=== PATIENT | male | born 1985 | race Caucasian/White ===

== ENCOUNTER 2024-11-30 07:41 | Day surgery (SDC) | payer BC ==
[2024-11-27 17:38] VITALS: BMI 30.1
[2024-11-30] MEDS ORDERED: LIDOCAINE HCL/PF 2% SDV 5ML VIAL ONE (08:23)
[2024-11-30] MEDS ORDERED: MIDAZOLAM HCL 2 MG/2 ML SINGLE DOSE VIAL ONE (08:23)
[2024-11-30] MEDS ORDERED: PROPOFOL 20 ML ONE (08:23)
[2024-11-30] MEDS ORDERED: BUPIVACAINE HCL/EPINEPHRINE/PF 30 ML VIAL IJ ONE (08:45)
[2024-11-30 08:48] VITALS: BP 134/86; PULSE 58; RESP 19; TEMP 97.5
== END 2024-11-30 10:06 | disposition home or self-care (01) ==
LOC: FASU 07:41 → EDSTATUS 08:00 → MERGE 08:00 → FASU 10:06
PROVIDERS: ATTEND Plastic Surgery
PROC: 0H9V3ZX Drainage of Bilateral Breast, Percutaneous Approach, Diagnostic (ICD-10-PCS; principal; 2024-11-30)
DX: N62 Hypertrophy of breast (principal); N60.12 Diffuse cystic mastopathy of left breast; N60.11 Diffuse cystic mastopathy of right breast; N60.81 Other benign mammary dysplasias of right breast; N60.82 Other benign mammary dysplasias of left breast
CPT/HCPCS: 19083; 76641-TC-50; 77065-TC; 77066-TC; 88305-TC; G0279-TC